=== PATIENT | female | born 1985 | race Two or more races ===

== ENCOUNTER 2024-12-26 02:03 | Emergency (ER) | payer MEDICAID, SELFPAY ==
[2024-12-26 02:04] VITALS: BMI 32.7
[2024-12-26 02:16] VITALS: BP 128/87; PULSE 64; RESP 16; TEMP 36.7; O2SAT 97
--- NOTE | 2024-12-26 02:20 | EDNOTE_ITS ---
ED Ear RME/HPI General Chief complaint: Ear Stated complaint: INSECT IN RIGHT EAR Time Seen by Provider: 12/26/24 02:19 Arrival date/time: 12/26/24 02:03 39F with no significant PMH presents to ED with possible bug in R ear. Sensation stopped prior to arrival in ED. Limitations: no limitations Related Data Previous Rx's ?Medication ?Instructions ?Recorded albuterol sulfate 90 mcg/actuation 2 puff inhalation Q 6H PRN 04/08/23 aerosol inhaler (Ventolin HFA) shortness of breath or wheezing #8.5 grams naproxen 500 mg tablet 500 mg PO BID PRN pain #30 t abs 04/08/23 nirmatrelvir 300 mg (150 mg See Rx Instructions PO .CO MPLEX 04/08/23 x2)-ritonavir 100 mg tablet,dose #30 tabs pack (Paxlovid) ondansetron 4 mg disintegrating 4 mg PO Q8H PRN nausea and 04/08/23 tablet vomiting #30 tabs hydrocodone 5 mg-acetaminophen 325 1 tab PO Q8H PRN pa in #15 tabs 01/09/24 mg tablet Allergies Allergy/AdvReac Type Severity Reaction Status Date / Time Sulfa (Sulfonamide Allergy Severe Rash Verified 12/26/24 02:06 Antibiotics) Review of Systems Review of Systems Systems Reviewed: All systems reviewed, normal except as documented Constitutional Constitutional: Reports system reviewed and no additional complaints, except as documented, Denies fever(s) and Denies headache(s) ENT Ears, Nose, Mouth, and Throat: Denies disequilibrium and Denies headache(s) Cardiovascular Cardiovascular: Reports system reviewed and no additional complaints, except as documented, Denies chest pain and Denies dyspnea Respiratory Respiratory: Reports system reviewed and no additional complaints, except as documented, Denies cough and Denies dyspnea Gastrointestinal Gastrointestinal: Reports system reviewed and no additional complaints, except as documented, Denies abdominal pain, Denies nausea and Denies vomiting Neurologic Neurologic: Reports system reviewed and no additional complaints, except as documented, Denies confusion, Denies disequilibrium and Denies headache(s) Psychiatric Psychiatric: Denies confusion Past Medical History Past Medical History CARDIAC: Negative Congestive Heart Failure RESPIRATORY: Negative Chronic Obstructive Pulmonary Disease (COPD) GENITOURINARY: Negative Renal Disease ENDOCRINE: Negative Diabetes Mellitus Type 1 or Diabetes Mellitus Type 2 OTHER HISTORY: Positive Blood Transfusions Surgical History SURGICAL: Positive Hysterectomy Social History SMOKING STATUS: Never smoker ED Exam General Limitations: Present no limitations General appearance: Present alert and in no apparent distress Head Head exam: Present atraumatic Eye Eye exam: Present normal appearance, PERRL and EOMI ENT ENT exam: Present normal exam, normal oropharynx and mucous membranes moist Neck Neck exam: Present normal inspection, full ROM and trachea midline Chest Chest inspection: Present normal inspection and symmetric chest wall rise Respiratory Respiratory exam: Present normal lung sounds bilaterally Cardiovascular Cardiovascular exam: Present regular rate, normal rhythm and normal heart sounds Abdominal Exam Abdominal exam: Present soft and normal bowel sounds Extremities Exam Extremities exam: Present normal inspection and full ROM Back Exam Back exam: Present normal inspection and full ROM Neurological Exam Neurological exam: Present alert, oriented X3 and CN II-XII intact Psychiatric Psychiatric exam: Present normal affect and normal mood Skin Skin exam: Present warm, dry, intact and normal color Course Quality Measures none Vital Signs Vital signs: Vital Signs Temperature 98.1 F 12/26/24 02:16 Pulse Rate 64 12/26/24 02:16 Respiratory Rate 16 12/26/24 02:16 Blood Pressure 128/87 H 12/26/24 02:16 Pulse Oximetry (%) 97 12/26/24 02:16 Oxygen Delivery Method Room Air 12/26/24 02:16 O2 at 97% on RA and WNLs Ear MDM Narrative MDM Narrative:: 39F with no significant PMH presents to ED with possible bug in R ear. Sensation stopped prior to arrival in ED. Physical exam reveals normal bilateral ear exam. Patient is afebrile, calm, and alert. Patient data External records reviewed:: [facility] previous records Clinical information provided by:: patient Social determinants that could affect healthcare access:: none Patient has the following chronic illnesses:: none How is presenting disease/condition affected by chronic disease/condition?: no chronic disease Evaluation data The following diagnostics were reviewed and interpreted by me:: other (specify) (none) Lab and/or radiology exams considered but not ordered:: not ordered Interpretation Summary: n/a Medications / Prescriptions Medications or Prescriptions considered but not ordered:: not ordered Medication administrations:: n/a Consultations Consultation(s) initiated? (list below): No Diagnosis Ear Differential Diagnosis: otitis externa, otitis media, foreign body in ear, ruptured TM, cerumen impaction and other (normal ear exam) Most likely diagnosis given after review of the tests above:: normal ear exam Admission Indicated Admission indicated?: not indicated Admission Request Was there a request for admission?: No Disposition Plan Disposition Plan: Discharge Discharge Attestation Discharge Attestation: The patient and all family members were given an opportunity to ask questions and understood the discharge instructions. Discharge instructions specifically effects, indications for sooner follow up or return to the emergency department, and the expected course of current diagnosis. Patient condition: Stable Discharge Plan Plan Patient Disposition: HOME (Self Care) Discharge Disposition comment: Stable Prescriptions/Referrals Prescriptions/Med Rec: No Action naproxen 500 mg tablet 500 mg PO BID PRN (Reason: pain) Qty: 30 0RF ondansetron 4 mg tablet,disintegrating 4 mg PO Q8H PRN (Reason: nausea and vomiting) Qty: 30 0RF Paxlovid 300 mg (150 mg x 2)-100 mg tablets,dose pack See Rx Instructions .ROUTE .COMPLEX Qty: 30 0RF Rx Instructions: take TWO 150 mg tablets of nirmatrelvir with ONE 100 mg tablet of ritonavir twice daily for 5 days albuterol sulfate [Ventolin HFA] 90 mcg/actuation HFA aerosol inhaler 2 puff inhalation Q6H PRN (Reason: shortness of breath or wheezing) Qty: 8.5 0RF hydrocodone-acetaminophen 5-325 mg tablet 1 tab PO Q8H MDD 4 g APAP PRN (Reason: pain) Qty: 15 0RF Problem List Clinical Impression: Normal ear exam Patient/Caregiver Discharge Instructions Additional Instructions: Please follow-up with PCP within 24-48 hours and return immediately if symptoms worsen. Print Language: Azeri Stand Alone Forms: Patient Portal Info Letter NAIDA/[employer] Supervising Physician NAIDA/NESS Supervising Physician: Dr. Holloway
== END 2024-12-26 02:21 | disposition home or self-care (01) ==
LOC: SERX 02:59
PROVIDERS: Emergency Provider Emergency Medicine; PCP Family Medicine
DX: T16.1XXA Foreign body in right ear, initial encounter (principal); W44.F4XA Insect entering into or through a natural orifice, initial encounter
CPT/HCPCS: 99281